=== PATIENT | male | born 2000 | race African-American/Black ===

== ENCOUNTER → 2023-09-22 07:36 | Outpatient (REF) | payer OTHER, SELFPAY | LOC: PAVMRI 07:36 | PROVIDERS: ATTENDING PHYSICIAN Internal Medicine Cardiovascular Disease; FAMILY PHYSICIAN Family Medicine | DX: I36.1 Nonrheumatic tricuspid (valve) insufficiency (principal); I42.9 Cardiomyopathy, unspecified | CPT/HCPCS: 75561; 75565; A9585 ==